=== PATIENT | female | born 1975 | race Caucasian/White ===

== ENCOUNTER 2023-06-25 10:23 | Emergency (ER) | payer OTHER ==
[~2023-06-25] VITALS: Ht 170 cm; Wt 70.0 kg
--- NOTE | 2023-06-25 10:36 | ED Syncope ---
General Chief Complaint: Dizziness/Syncope Stated Complaint: SYNCOPAL EPISODE; ARRHYTHMIA Source of Information: Patient Exam Limitations: No Limitations History of Present Illness Date Seen by Provider: Jun 25, 2023 Time Seen by Provider: 10:26 Initial Comments 48-year-old female presents to the emergency department today for syncopal episode. She was doing physical therapy got lightheaded, telling the therapist that she needed to sit down. She sat down for a few seconds and the next thing she knew she was waking up and had been told that she had lost consciousness. She remembers feeling lightheaded just prior to the event. She had no chest pain or shortness of breath. She feels back to normal at present. She has passed out a couple of times in the distant past but nothing recently. No recent illnesses. Last menstrual cycle was 1 week ago normal for her All other systems reviewed and negative except documented per HPI. Voice recognition software was used to help create this chart Allergies and Home Medications Allergies Coded Allergies: No Known Drug Allergies (Unverified , 06/25/23) Patient Home Medication List Home Medication List Reviewed: Yes Review of Systems Constitutional: see HPI Past [id number]-[id number] Hx Patient Social History Tobacco Use?: No Use of E-Cig and/or Vaping dev: No Substance use?: No Alcohol Use?: No Physical Exam Vital Signs Vital Signs - First Documented 06/25/23 10:25 Temp 36.3 Pulse 84 Resp 16 B/P (MAP) 124/76 (92) Pulse Ox 99 O2 Delivery Room Air Capillary Refill : Height, Weight, BMI Height: '" Weight: lbs. oz. kg; BMI Method: General Appearance: No Apparent Distress, WD/WN HEENT: PERRL/EOMI, Normal ENT Inspection, Pharynx Normal Neck: Normal Inspection, Non Tender, Supple Cardiovascular: Regular Rate, Rhythm, No Murmur, Normal Peripheral Pulses Respiratory: Chest Non Tender, Lungs Clear, Normal Breath Sounds, No Accessory Muscle Use, No Respiratory Distress Gastrointestinal: Normal Bowel Sounds, No Organomegaly, Non Tender, Soft Extremities: Normal Capillary Refill, Normal Inspection, Non Tender, No Calf Tenderness Neurologic/Psychiatric: Alert, Oriented x3, No Motor/Sensory Deficits, Normal Mood/Affect, research programmer II-XII Norm as Tested Cranial Nerves: Normal Hearing, Normal Speech Coordination/Gait: Normal Finger to Nose, Normal Gait Skin: Normal Color, Warm/Dry Progress/Results/Core Measures Results/Orders Lab Results Laboratory Tests Test 06/25/23 10:33 Range/Units White Blood Count 7.5 4.3-11.0 10^3/uL Red Blood Count 4.89 3.80-5.11 10^6/uL Hemoglobin 10.3 L 11.5-16.0 g/dL Hematocrit 35 35-52 % Mean Corpuscular Volume 72 L 80-99 fL Mean Corpuscular Hemoglobin 21 L 25-34 pg Mean Corpuscular Hemoglobin Concent 29 L 32-36 g/dL Red Cell Distribution Width 15.5 H 10.0-14.5 % Platelet Count 400 130-400 10^3/uL Mean Platelet Volume 9.0 9.0-12.2 fL Immature Granulocyte % (Auto) 0 % Neutrophils (%) (Auto) 62 42-75 % Lymphocytes (%) (Auto) 26 12-44 % Monocytes (%) (Auto) 9 0-12 % Eosinophils (%) (Auto) 3 0-10 % Basophils (%) (Auto) 1 0-10 % Neutrophils # (Auto) 4.6 1.8-7.8 10^3/uL Lymphocytes # (Auto) 1.9 1.0-4.0 10^3/uL Monocytes # (Auto) 0.6 0.0-1.0 10^3/uL Eosinophils # (Auto) 0.2 0.0-0.3 10^3/uL Basophils # (Auto) 0.0 0.0-0.1 10^3/uL Immature Granulocyte # (Auto) 0.0 0.0-0.1 10^3/uL Percent Immature Platelet Fraction 1.6 0.0-7.6 % Sodium Level 140 135-145 MMOL/L Potassium Level 4.0 3.6-5.0 MMOL/L Chloride Level 104 98-107 MMOL/L Carbon Dioxide Level 22 21-32 MMOL/L Anion Gap 14 5-14 MMOL/L Blood Urea Nitrogen 11 7-18 MG/DL Creatinine 0.96 0.60-1.30 MG/DL Estimat Glomerular Filtration Rate 73 BUN/Creatinine Ratio 11 Glucose Level 97 70-105 MG/DL Calcium Level 9.5 8.5-10.1 MG/DL Serum Test, Qualitative NEGATIVE NEGATIVE My Orders Orders - SHIRA MEADE DO Ekg Tracing (06/25/23 10:33) Cbc And Automated Diff (06/25/23 10:33) Basic Metabolic Panel (06/25/23 10:33) Hcg,Qualitative Serum (06/25/23 10:33) Vital Signs/I&O 06/25/23 10:25 Temp 36.3 Pulse 84 Resp 16 B/P (MAP) 124/76 (92) Pulse Ox 99 O2 Delivery Room Air Comment Sinus rhythm with a rate of 85 bpm. Normal intervals. Normal axis. No ST or T wave abnormalities. No ectopy. No STEMI. Departure Communication (Admissions) Patient is hemodynamically stable, back to normal baseline and feeling normal. She has had no recent illnesses. No palpitations, chest pain or shortness of breath. Unclear the cause of her syncope today however it does not appear to be from an acute emergent condition at this time. I did recommend she follow-up with her primary doctor prior to resuming physical therapy to see if they would think any further testing is warranted. She states understanding. Discharged in stable condition. Impression Primary Impression: Syncope Qualified Codes: R55 - Syncope and collapse Disposition: 01 HOME, SELF-CARE Condition: Stable Departure-Patient Inst. Referrals: SELF,JAMESON CHOI (PCP) Primary Care Physician Patient Instructions: Syncope (Fainting) (DC) Add. Discharge Instructions: As discussed no emergent medical conditions identified for your episode today. I do recommend you follow-up with your primary doctor for reevaluation prior to returning to physical therapy. Return to the emergency department immediately i f you have any chest pain, shortness of breath or for symptoms change in any way concerning to you. Return to the emergency department for any severe concerns. All discharge instructions reviewed with patient and/or family. Voiced understanding. SHIRA MEADE DO Jun 25, 2023 10:36
[2023-06-25 10:42] LABS: BASOPHILS % (AUTO) 1 % (0-10); EOSINOPHILS # (AUTO) 0.2 10^3/uL (0.0-0.3); EOSINOPHILS % (AUTO) 3 % (0-10); HEMATOCRIT 35 % (35-52); HEMOGLOBIN 10.3 g/dL (11.5-16.0); LYMPHOCYTES # (AUTO) 1.9 10^3/uL (1.0-4.0); LYMPHOCYTES % (AUTO) 26 % (12-44); MEAN CORPUSCULAR HEMOGLOBIN 21 pg (25-34); MEAN CORPUSCULAR HGB CONC 29 g/dL (32-36); MEAN CORPUSCULAR VOLUME 72 fL (80-99); MONOCYTES # (AUTO) 0.6 10^3/uL (0.0-1.0); MONOCYTES % (AUTO) 9 % (0-12); NEUTROPHILS # (AUTO) 4.6 10^3/uL (1.8-7.8); NEUTROPHILS % (AUTO) 62 % (42-75); PLATELET COUNT 400 10^3/uL (130-400); WHITE BLOOD COUNT 7.5 10^3/uL (4.3-11.0)
[2023-06-25 11:03] LABS: CALCIUM 9.5 MG/DL (8.5-10.1); CREATININE SERUM 0.96 MG/DL (0.60-1.30)
[2023-06-25 11:18] VITALS: BP 113/61
== END 2023-06-25 11:18 | disposition home or self-care (01) ==
LOC: ER FS 10:25
DX: R55 Syncope and collapse (principal)
CPT/HCPCS: 36415; 80048; 84703; 85025; 93005

== ENCOUNTER → 2023-07-03 | Outpatient (CLI) | payer OTHER | LOC: CARD 08:32 | PROVIDERS: ATTEND Nurse Practitioner Family | DX: R55 Syncope and collapse (principal) | CPT/HCPCS: 93225; 93226 ==